=== PATIENT | male | born 1960 | race Caucasian/White ===

== ENCOUNTER 2022-02-12 10:06 | Outpatient (CLI) | payer OTHER, SELFPAY | END 2022-02-12 10:07 | disposition home or self-care (01) | LOC: OP CLINIC 10:07 | PROVIDERS: PCP Internal Medicine; Visit Provider Surgery | DX: Z12.11 Encounter for screening for malignant neoplasm of colon (principal) | CPT/HCPCS: 45378; 99153; J2250; J3010 ==

== ENCOUNTER 2022-02-20 09:26 | Outpatient (CLI) | payer OTHER, SELFPAY ==
[2022-02-20 11:44] LABS: Albumin* 4.5 g/dL (3.3-5.0); Chloride* 104 mmol/L (96-114); Potassium* 4.6 mmol/L (3.6-5.1); Sodium* 137 mmol/L (135-149)
[2022-02-20 11:46] LABS: Cholesterol* 225 mg/dL (90-199); Estimated Glomerular Filt Rate 86 ml/min
[2022-02-20 11:47] LABS: Alanine Aminotransferase* 21 U/L (4-50); Alkaline Phosphatase* 56 U/L (40-150); Aspartate Amino Transferase* 26 U/L (12-35); Bilirubin Total* 0.7 mg/dL (0.1-1.5); Blood Urea Nitrogen* 15 mg/dL (7-30); Calcium* 9.3 mg/dL (8.4-10.6); Carbon Dioxide* 26 mmol/L (20-32); Glucose* 94 mg/dL (60-115); Total Protein* 7.5 g/dL (6.0-8.3); Triglycerides* 79 mg/dL (40-149)
[2022-02-20 12:08] LABS: HDL Cholesterol* 77 mg/dL (>=40); LDL Cholesterol Calculated 132 mg/dL (<100)
[2022-02-20 12:25] LABS: PSA Screen* 0.94 ng/mL (0.10-4.00)
== END 2022-02-20 09:27 | disposition home or self-care (01) ==
PROVIDERS: PCP Internal Medicine; Visit Provider Internal Medicine
DX: Z00.00 Encounter for general adult medical examination without abnormal findings (principal); M19.039 Primary osteoarthritis, unspecified wrist; L71.9 Rosacea, unspecified; Z12.5 Encounter for screening for malignant neoplasm of prostate; Z13.6 Encounter for screening for cardiovascular disorders
CPT/HCPCS: 80053; 80061; 84153

== ENCOUNTER 2024-04-12 15:28 | Outpatient (CLI) | payer OTHER, SELFPAY ==
--- OUTSIDE RECORDS SUMMARY | 2024-04-12 15:30 | XMS_ITS | Continuity of Care Document ---
Author Organization [facility] Address [address] [place] [address] [address] [place] [address] Phone Care Team Providers Care Asset Protection Detective Name Role Phone Dev Pyle MD Unavailable Unavailable Procedures Procedure Date Office consultation, low Advance Directives Directive Yes / No Effective Date File Name No Information Encounters Encounter Description Practice Location Reason(s) For Visit Diagnoses Date Provider Providers Copied on Encounter Office consultation, low [facility], [address] [place], [place] [address], [place], [address], [place] tel:[phone] [facility] No Information Sep- 6-200 6 Transfeldt Ensor. [facility], [address], [place], [place], [id number], [place]. tel:[phone] Referring Provider: Naresh Siegel, [address], [address]. tel:[phone] Family History Family Member Type Diagnosis Age At Onset No Information Payers Payer name Insurance type Covered alliance party ID Rigoberto osman(s) [facility] [id number] Social History Type Description Quantity Date Captured Comments Sex Male Smoking Status No Information Chief Complaint And Reason For Visit No Information Reason For Referral Reason For Referral No Information History Of Present Illness Encounter Date Complaint History Of Prese nt Illness No Information Functional Status Date Functional Assessmen t No Information Instructions Date Instruction Additional Infor mation No Information Assessments Type Assessment Date No Information Patient Care Teams Name Effective Dates (start - stop) Status Members No Information
--- OUTSIDE RECORDS SUMMARY | 2024-04-12 15:30 | XMS_ITS | Clinical Summary ---
Author Organization [facility] Address [place], [place] [address] Care Team Providers Care School Librarian Name Role Phone Pcp, No Primary Care Provider Unavailabl e Allergies Active Allergy Reactions Criticality Noted Date Comments Sulfa (Sulfonamide Antibiotics) Rash 12/20 Medications Medication Sig Dispensed Refills Start Date End Date Status triamcinolone (ARISTOCORT; KENALOG) 0.1 % cream APPLY TOPICALLY TO THE AFFECTED AREA EVERY DAY 02/20/2022 Active Active Problems No known active problems Social History Tobacco Use Types Packs/Day Years Used Date Smoking Tobacco: Never Smokeless Tobacco: Never Tobacco Cessation:Counseling Given: Yes Alcohol Use Standard Drinks/Week Comments Not Asked 0 (1 standard drink = 0.6 oz pur e alcohol) Social Connections Answer Date Recorded Frequency of Communication with Friends and Fami ly Not on file 01/01/2023 Financial Resource Strain Answer Date R ecorded Difficulty of Paying Living Expenses Not on file 07/21/2021 Difficulty of Paying Living Expenses Not on file 07/21/2021 Sex and Gender Information Value Date Recorded Sex Assigned at Not on file Gender Identity Not on file Sexual Orientation Not on file Obstetrics History Last Filed Vital Signs Vital Sign Reading Time Taken Comments Blood Pressure 126/72 01/01/2023 3:07 PM CDT Pulse 70 01/01/2023 3:07 PM CDT Temperature 37 ??C (98.6 ??F) 01/01/2023 3:07 PM CDT Respiratory Rate - - Oxygen Saturation 96% 01/01/2023 3:07 PM CDT Inhaled Oxygen Concentration - - Weight 80.6 kg (177 lb 9.6 oz) 01/01/2023 3:07 P M CDT Height - - Body Mass Index - - Plan of Treatment Health Maintenance Due Date Last Done Comments Tdap 11/21/1971 Depression screening for age 12+ 1972 HIV for age 15-65 11/21/1975 BMI (ht and wt on same day) for age 18+ 1978 Hepatitis C screening for ag e 18-79 1978 Tetanus booster 1980 Colonoscopy through age 75 2005 Lipids for age 45-75 2005 Zoster (shingles) series for age 50+ (1 of 2) 2010 COVID-19 vaccine series (2022- season) 2024 06/16/2022, 11/14/2020, 10/19/2020 Influenza for age 50-64 03/21/2024 Pneumococcal series for age 6-64 Aged Out No longer eligible b ased on patient's age to complete this topic Care Teams School Librarian Relationship Specialty Start Date End Date Pcp, No . PCP - General 09/13/10
--- NOTE | 2024-04-27 12:46 | W.PM.SLEEP ---
Sleep Study Details Details Interpreting Provider: Kylee Date of Sleep Study: 04/12/24 Sleep Study Details: STUDY TYPE:? Home unattended ? BMI:? 27.9 ORDERING PROVIDER:Grecia Pichardo INDICATION:? Concern about sleep apnea ? SLEEP SUMMARY:? 443.5 minutes monitored RESPIRATORY SUMMARY:? AHI is 2.6 Low oxygen 90 Snoring 96.1% PERIODIC LIMB MOVEMENTS OF SLEEP:? Not recorded CARDIAC:? Range 44-87, mean 54.3 beats per minute IMPRESSION:? This study is not demonstrate clinically significant obstructive sleep apnea. It is consistent with primary snoring. RECOMMENDATION: If sleep disorder is strongly suspected recommend an in-lab study.
== END 2024-04-12 15:29 | disposition home or self-care (01) ==
LOC: SLEEP 15:28
PROVIDERS: PCP Internal Medicine; Visit Provider Otolaryngology
DX: G47.30 Sleep apnea, unspecified (principal); G47.10 Hypersomnia, unspecified; R06.83 Snoring
CPT/HCPCS: 95806